=== PATIENT | female | born 1975 | race Caucasian/White ===

== ENCOUNTER → 2024-08-01 | Day surgery (SDC) | payer BC ==
[~2024-08-01] VITALS: Ht 152.4 cm; Wt 70.3 kg
[~2024-08-01] MED LIST: ATOR10TA69 PO; BUPIVACAINE HCL/PF 0.5% (5MG/ML) 10ML ONE; DEXAMETHASONE 4MG/ML 1ML VIAL ONE; FENTANYL CITRATE/PF 50MCG/ML 2ML VIAL ONE; GLYCOPYRROLATE 0.2MG/ML VIAL 5ML IV PRN; HYDR12.54 PO; HYDROMORPHONE HCL/PF 1MG/ML INJ IV PRN; HYDROMORPHONE HCL/PF 2MG/ML INJ ONE; LEVO25TA7 PO; LIDOCAINE HCL 1% 20ML VIAL ONE; LOSA50TA41 PO; POLYMYXIN B SULFATE 500000 UNITS/VIAL ONE; PROPOFOL 200MG/20ML VIAL IV ONE; TRIAMCINOLONE ACETONIDE 40MG/ML 1ML VIAL ONE
[2024-08-01 10:45] LABS: UCG SCREEN NEGATIVE
[2024-08-01] MEDS: LACTATED RINGERS 1,000 ML IV SCH (11:07)
[2024-08-01] MEDS: ONDANSETRON HCL 4MG/2ML INJ IV PRN (14:58)
== END | disposition home or self-care (01) ==
LOC: OR 10:11
PROVIDERS: ATTEND Podiatrist Foot & Ankle Surgery
DX: M72.2 Plantar fascial fibromatosis (principal); I10 Essential (primary) hypertension; E78.5 Hyperlipidemia, unspecified; E03.9 Hypothyroidism, unspecified; Z79.899 Other long term (current) drug therapy; Z98.890 Other specified postprocedural states
CPT/HCPCS: 29893; 97161; 81025; 97116; J3010; J3490 ×3; J1100; J2405; J2704; J3301; J1170